=== PATIENT | male | born 1970 | race Caucasian/White ===

== ENCOUNTER 2017-07-16 18:34 | Emergency (ER) | payer MEDICAID ==
--- NOTE | 2017-07-16 21:36 | ED ---
Throat Pain/Nasal Congestion - HPI Summary HPI Summary: 46 male presents to ED with complaints of getting delousing shampoo into his eyes around 17:45 today. Patient states since his eyes have been red, irritated and painful. States the right eye is worse than the left. The left one has seemed to improve since arrival. Denies vision loss. Admits to light sensitivity and foreign body sensation. No other complaints at this time. No medications and no PMHx. did irrigate with water multiple times prior to arrival with little relief. - History of Current Complaint Chief Complaint: EDEyeProblem Time Seen by Provider: 07/16/17 20:20 Hx Obtained From: Patient Onset/Duration: Sudden Onset Severity: Moderate Associated Signs And Symptoms: Positive: FB Sensation Cough: None - Allergies/Home Medications Allergies/Adverse Reactions: Allergies Allergy/AdvReac Type Severity Reaction Status Date / Time No Known Allergies Allergy Verified 07/16/17 18:39 PMH/Surg Hx/FS Hx/Imm Hx Endocrine/Hematology History: Denies: Hx Diabetes Cardiovascular History: Denies: Hx Hypertension Respiratory History: Denies: Hx Asthma Sensory History: Denies: Hx Contacts or Glasses Opthamlomology History: Denies: Hx Contacts or Glasses - Surgical History Surgery Procedure, Year, and Place: n.a - Immunization History Immunizations Up to Date: Yes Infectious Disease History: No Infectious Disease History: Denies: Traveled Outside the [place] in Last 30 Days - Family History Known Family History: Positive: None - Social History Alcohol Use: None Substance Use Type: Reports: None Smoking Status (MU): Current Every Day Smoker Review of Systems Constitutional: Negative Positive: Photophobia, Drainage - tearing, Erythema, Other - itritation/pain ENT: Negative Cardiovascular: Negative Respiratory: Negative Neurological: Negative All Other Systems Reviewed And Are Negative: Yes Physical Exam Triage Information Reviewed: Yes Vital Signs On Initial Exam: Initial Vitals Temp Pulse Resp BP Pulse Ox 98.3 F 62 18 102/68 98 07/16/17 18:39 07/16/17 18:39 07/16/17 18:39 07/16/17 18:39 07/16/17 18:39 Vital Signs Reviewed: Yes Appearance: Positive: Well-Appearing, No Pain Distress, Well-Nourished Skin: Positive: Warm, Skin Color Reflects Adequate Perfusion, Dry Head/Face: Positive: Normal Head/Face Inspection Eyes: Positive: EOMI, MARY, Conjunctiva Inflammed - b/l, worse on right, tearing noted, no obvious FB and no FB on fluroscein stain, corneal abrasions noted on right eye. normal fundoscopic exam from what was able to be visualized. normal visual acuity. ENT: Positive: Normal ENT inspection, Hearing grossly normal Neck: Positive: Supple, Nontender Respiratory/Lung Sounds: Positive: Clear to Auscultation, Breath Sounds Present. Negative: Rales, Rhonchi, Wheezes Cardiovascular: Positive: Normal, RRR, Pulses are Symmetrical in both Upper and Lower Extremities. Negative: Murmur, Rub Musculoskeletal: Positive: Normal, Strength/ROM Intact Neurological: Positive: Normal, Sensory/Motor Intact, Alert, Oriented to Person Place, Time Procedures - Eye Procedure Alcaine Drops Administered: Yes Eye Irrigated w/ Saline (ccs): 1,000 Antibiotic Ointment/Drps Admin: both eyes Diagnostics - Vital Signs Vital Signs Temp Pulse Resp BP Pulse Ox 07/16/17 20:45 98.3 F 62 18 102/68 98 07/16/17 18:39 98.3 F 62 18 102/68 98 - Laboratory Lab Statement: Any lab studies that have been ordered have been reviewed, and results considered in the medical decision making process. EENT Course/Dx - Course Course Of Treatment: both eyes were irrigated thouroughly. poison control called at 8:45p Mariella and stated that the shampoo that was present at visit was an irritant, irrigate and follow up. no specific treatment. fluroscein stain showed some minor small corneal abrasion probably from rubbing due to irritant. no concern for vision loss. follow up ortho. continue irrigating given saline wash, preventative anitbiotic drops. awre of worsening signs and symptoms. - Differential Diagnoses Differential Diagnoses: Conjunctivitis, Corneal Abrasion, Foreign Body, Other - eye burn, irritation b/l eyes - Diagnoses Provider Diagnoses: Corneal abrasion, right, Irritation of both eyes - Provider Notifications Discussed Care Of Patient With: poison control Time Discussed With Above Provider: 20:45 Discharge - Discharge Plan Condition: Stable Disposition: HOME Prescriptions: Polymyx/Trimethoprim OPTH* [Polytrim OPHTH*] 1 drop BOTH EYES Q3H #1 btl Patient Education Materials: Corneal Abrasion (ED), Chemical Eye Marx (ED) Forms: *Work Release Referrals: Non Staff,Doctor [Primary Care Provider] - Fidel Dias MD [Medical Doctor] - Tunde Barrett MD [Medical Doctor] - Additional Instructions: Continue to irrigate eyes multiple times daily. Avoid bright lights, wear sunglasses. Do not touch or rub eyes, keep fingers away from eyes. Cool compresses may help soothe pain. Ibuprofen as needed. Use prescribed antibiotic drop to prevent infection starting Friday, x 7 days. you may decrease use the last 3 days. Follow up with eye doctor within the next week. Return if symptoms worsen or do not improve.
[2017-07-16 21:50] VITALS: BP 114/67
== END 2017-07-16 21:49 | disposition home or self-care (01) ==
LOC: ED 18:34
DX: S05.01XA Injury of conjunctiva and corneal abrasion without foreign body, right eye, initial encounter (principal); S00.209A Unspecified superficial injury of unspecified eyelid and periocular area, initial encounter; H57.8 Other specified disorders of eye and adnexa; F17.210 Nicotine dependence, cigarettes, uncomplicated; X58.XXXA Exposure to other specified factors, initial encounter; Y93.9 Activity, unspecified; Y92.9 Unspecified place or not applicable
CPT/HCPCS: 99282